=== PATIENT | male | born 1995 | race Caucasian/White ===

== ENCOUNTER 2020-12-26 19:18 | Emergency (ER) | payer OTHER ==
[~2020-12-26] VITALS: Ht 180.3 cm; Wt 76.7 kg
[2020-12-26 19:26] VITALS: BP 139/76
--- NOTE | 2020-12-26 19:26 | NUR ---
TO LOBBY A/W BED AMBULATORY
--- NOTE | 2020-12-26 20:12 | NUR ---
PT AMBULATED TO BED 10
[2020-12-26 20:32] VITALS: BP 139/76
--- NOTE | 2020-12-26 20:50 | NUR ---
d/c with vss. d/c education given. opportunity to ask questions given and answered. no rx given.
== END 2020-12-26 20:50 | disposition home or self-care (01) ==
LOC: MED 19:18
DX: M25.511 Pain in right shoulder (principal); Z88.0 Allergy status to penicillin
CPT/HCPCS: 73030; 99283